=== PATIENT | female | born 1950 | race Caucasian/White ===

== ENCOUNTER 2022-05-31 16:35 | Emergency (ER) | payer OTHER, BC ==
[~2022-05-31] VITALS: Ht 167.6 cm; Wt 63.5 kg
== END 2022-05-31 18:59 | disposition home or self-care (01) ==
LOC: ER 17:12
DX: M25.532 Pain in left wrist (principal); I10 Essential (primary) hypertension; E11.9 Type 2 diabetes mellitus without complications; W01.198A Fall on same level from slipping, tripping and stumbling with subsequent striking against other object, initial encounter; Y93.01 Activity, walking, marching and hiking; Y92.89 Other specified places as the place of occurrence of the external cause
CPT/HCPCS: 99282